=== PATIENT | female | born 1970 | race African-American/Black ===

== ENCOUNTER 2016-11-28 17:28 | Emergency (ER) | payer MEDICAID ==
[~2016-11-28] VITALS: Ht 175.3 cm; Wt 77.1 kg
[~2016-11-28 17:28] MED LIST: BACITRACIN1 APPLIC TOPIC; BACTRIM DS TAB1 EAC1 ORAL; IBUPROFEN600 MG ORAL; METHIMAZOLE10 MG PO
[2016-11-28] MEDS ORDERED: IBUPROFEN600 MG ORAL (18:42)
[2016-11-28 18:55] VITALS: BP 134/74
--- NOTE | 2016-11-28 22:52 | Emergency Room Report ---
History of Present Illness General Chief Complaint: Lower Extremity Injury Source: Patient Present Illness HPI The patient is a 46-year-old female presenting for left foot pain. She does admit to surgery of the left toe approximately 1 year prior with no complications. Pain began this morning for no known reason. Described as an 8/ 10 dull ache to the far end of the foot and does not radiate. Worse with walking. She also noticed swelling to the area. She denies any other injury or symptoms including nausea, vomiting, fever, chills, rash Allergies: Coded Allergies: SULFAMETHOXAZOLE (Verified Allergy, Mild, Itching, 05/03/14) TRIMETHOPRIM (Verified Allergy, Mild, Itching, 05/03/14) Patient History Past Medical History: see triage record Pertinent Family History: none Last Menstrual Period: na Reviewed Nursing Documentation: PMH: Agreed, PSxH: Agreed Nursing Documentation-PMH Past Medical History: No History, Except For Review of Systems All Other Systems: negative except mentioned in HPI Physical Exam Vital Signs Date Time Temp Pulse Resp B/P (MAP) Pulse Ox O2 Delivery O2 Flow Rate FiO2 11/28/16 17:51 98.8 79 18 134/74 99 Room Air Sp02 EP Interpretation: reviewed, normal General Appearance: no apparent distress, alert, GCS 15, non-toxic Head: normocephalic, atraumatic Eyes: bilateral eye normal inspection, bilateral eye PERRL ENT: hearing grossly normal, normal pharynx, no angioedema, normal voice Musculoskeletal: tender - TTP over the L 3rd and 4th MC and phalanges Neurologic: alert, oriented x3, responsive, motor strength/tone normal, sensory intact, speech normal Psychiatric: judgement/insight normal, memory normal, mood/affect normal, no suicidal/homicidal ideation Skin: normal color, no rash, warm/dry, well hydrated Lymphatic: no adenopathy Procedures Splinting Splinting : Consent: Verbal Location: L foot Pre-Made Type: cast shoe Pre-Proc Neuro Vasc Exam: normal Post-Proc Neuro Vasc Exam: normal Patient Tolerated: Well Complications: None Medical Decision Making PA Attestation Dr. Barnett is my supervising physician. Patient management was discussed with my supervising physician Diagnostic Impression: Primary Impression: Closed fracture of toe, phalanx Qualified Codes: S92.912A - Unspecified fracture of left toe(s), initial encounter for closed fracture ER Course The patient is a 46-year-old female presenting for left foot pain. Ddx considered include but not limited to sprain/strain, gout, fracture, contusion, hardware failure PE: NAD No podagra TTP over the L 3rd and 4th MC and phalanges with swelling. No ecchymosis X-ray of the left foot reveals a fracture of the left third proximal phalanx. The patient is given a cast shoe and crutches and will follow up with her orthopedic doctor soon as possible. ER precautions given Other X-Ray Diagnostic Results Other X-Ray Diagnostic Results : X-Ray ordered: L foot # of Views/Limited Vs Complete: 3 View Indication: Pain EP Interpretation: Yes Interpretation: no dislocation, no soft tissue swelling, no fractures Impression: No acute disease Electronically Signed by: LIZ Stephenson Scriblula Text I have reviewd the xray with my supervising physician and interpretation is that there are is a fracture of the 3rd proximal phalanx Last Vital Signs Date Time Temp Pulse Resp B/P (MAP) Pulse Ox O2 Delivery O2 Flow Rate FiO2 11/28/16 18:55 98.8 84 18 134/74 99 Room Air Status: improved Disposition: HOME, SELF-CARE Condition: Improved Scripts Ibuprofen* (MOTRIN*) 600 Mg Tablet 600 MG ORAL Q8H Y for For Pain, #30 TAB 0 Refills Prov: JAMES MURRAY 11/28/16 Patient Instructions: Toe Fracture Additional Instructions: I discussed my findings with the patient. All questions and concerns have been answered. Treatment and medication compliance have been addressed. I advised the patient that they need to follow up with PMD in 3-5 days. Return to ED if pain remains or worsens, numbness or tingling occurs, new rash is noticed, fever is noticed, or if needed for any reason. Patient verbalized understanding of discharge instructions. JAMES MURRAY Nov 28, 2016 22:52
--- NOTE | 2016-11-29 10:38 | Diagnostic Imaging Report ---
Indication: PAIN Technique: 3 views foot Comparison: none Findings: The second proximal interphalangeal joint is fused, presumably surgically. A surgical screw is seen within the head of the second metatarsal, presumably reducing old healed left anatomy. No acute fractures. No dislocations. Joint spaces are preserved. Impression: No acute process Post surgical changes, as described
== END 2016-11-28 19:34 | disposition home or self-care (01) ==
LOC: EMR 18:20
DX: S92.512A Displaced fracture of proximal phalanx of left lesser toe(s), initial encounter for closed fracture (principal); X58.XXXA Exposure to other specified factors, initial encounter; Y92.89 Other specified places as the place of occurrence of the external cause; Z88.2 Allergy status to sulfonamides
CPT/HCPCS: 99283

== ENCOUNTER 2017-12-11 22:29 | Emergency (ER) | payer MEDICAID ==
[~2017-12-11] VITALS: Ht 175.3 cm; Wt 77.1 kg
[2017-12-11 22:45] VITALS: BP 148/79
--- NOTE | 2017-12-11 22:52 | Emergency Room Report ---
History of Present Illness General Chief Complaint: Skin Rash/Abscess Source: Patient, Medical Record Present Illness HPI Is a 47-year-old female with no significant past medical issue. She present with chief complaint of a spider bite. She has some swelling to her left forearm, left eye and right forearm. His been 2 days now. Itchy. Did not see any spider biting her. No nausea no vomiting. No fever chills. Denies any other complaint. No drainage. Allergies: Coded Allergies: SULFAMETHOXAZOLE (Verified Allergy, Mild, Itching, 05/03/14) TRIMETHOPRIM (Verified Allergy, Mild, Itching, 05/03/14) Patient History Past Medical History: see triage record, old chart reviewed Past Surgical History: none Pertinent Family History: none Social History: Denies: smoking Last Menstrual Period: na Now: No Immunizations: other Reviewed Nursing Documentation: PMH: Agreed; PSxH: Agreed Nursing Documentation-PM Past Medical History: No Stated History Review of Systems Eye: Denies: eye pain, blurred vision ENT: Denies: ear pain, nose congestion, throat swelling Respiratory: Denies: cough, shortness of breath Cardiovascular: Denies: chest pain, palpitations Gastrointestinal: Denies: abdominal pain, diarrhea, nausea, vomiting Musculoskeletal: Denies: back pain, joint pain Skin: Reports: rash Neurological: Denies: headache, numbness Endocrine: Denies: increased thirst, increased urine Hematologic/Lymphatic: Denies: easy bruising All Other Systems: negative except mentioned in HPI Physical Exam Vital Signs Date Time Temp Pulse Resp B/P (MAP) Pulse Ox O2 Delivery O2 Flow Rate FiO2 12/11/17 22:38 98.1 88 18 148/79 96 Room Air vitals for high blood pressure Sp02 EP Interpretation: reviewed, normal General Appearance: well appearing, no apparent distress, alert Head: normocephalic, atraumatic Eyes: left eye other - Left upper eyelid with edema. There is small abrasion/ possible nidus of infection. No abscess.; bilateral eye PERRL, bilateral eye EOMI ENT: hearing grossly normal, normal pharynx Neck: full range of motion, supple, no meningismus Respiratory: chest non-tender, lungs clear, normal breath sounds Cardiovascular #1: regular rate, rhythm, no murmur Gastrointestinal: normal bowel sounds, non tender, no mass, no organomegaly, no bruit, non-distended Musculoskeletal: back normal, gait/station normal, normal range of motion, other - Left forearm: On the proximal aspect there is edema of about 5 cm. There is no abscess. Some mild redness. There is some small cluster of abrasion/macules. Neurologic: alert, oriented x3 Psychiatric: mood/affect normal Skin: warm/dry Medical Decision Making Diagnostic Impression: Primary Impression: Cellulitis Qualified Codes: L03.90 - Cellulitis, unspecified ER Course Patient with cellulitis with multiple sites. No evidence of orbital cellulitis. No evidence of abscess or necrotizing fasciitis. Because his multiple sites, most likely MRSA. We'll discharge home. Dose of antibiotics given here. Last Vital Signs Date Time Temp Pulse Resp B/P (MAP) Pulse Ox O2 Delivery O2 Flow Rate FiO2 12/11/17 22:38 98.1 88 18 148/79 96 Room Air Status: improved Disposition: HOME, SELF-CARE Condition: Stable Scripts Mupirocin* (MUPIROCIN*) 22 Gm Oint...g. 1 APPLIC TOPIC THREE TIMES A DAY, #22 GM Prov: Doug Ponce MD 12/11/17 Clindamycin Hcl (CLINDAMYCIN HCL) 300 Mg Capsule 300 MG ORAL THREE TIMES A DAY, #21 CAP Prov: Doug Ponce MD 12/11/17 Additional Instructions: Follow-up with your DrLucrecia in 2-3 days recheck. Return if worse. Doug Ponce MD Dec 11, 2017 22:52
[2017-12-11] MEDS ORDERED: MUPIROCIN22 GM TOPIC (22:57)
[2017-12-11] MEDS ORDERED: CLINDAMYCIN HC300 MG ORAL (22:57)
[2017-12-11] MEDS ORDERED: Clindamycin 150mg cap ORAL ONE (23:00)
[2017-12-11 23:23] VITALS: BP 108/77
== END 2017-12-11 23:13 | disposition home or self-care (01) ==
LOC: EMR 22:50
DX: L03.114 Cellulitis of left upper limb (principal); L03.113 Cellulitis of right upper limb; S50.862A Insect bite (nonvenomous) of left forearm, initial encounter; S50.861A Insect bite (nonvenomous) of right forearm, initial encounter; Z88.1 Allergy status to other antibiotic agents; W57.XXXA Bitten or stung by nonvenomous insect and other nonvenomous arthropods, initial encounter; Y92.9 Unspecified place or not applicable; H02.844 Edema of left upper eyelid; Z88.2 Allergy status to sulfonamides; S00.212A Abrasion of left eyelid and periocular area, initial encounter
CPT/HCPCS: 96372; 99283

== ENCOUNTER 2017-12-26 18:25 | Emergency (ER) | payer MEDICAID ==
[~2017-12-26] VITALS: Ht 175.3 cm; Wt 79.4 kg
[~2017-12-26 18:25] MED LIST changes: +CLINDAMYCIN HC300 MG ORAL; +MUPIROCIN22 GM TOPIC
[2017-12-26] MEDS ORDERED: NKM (18:34)
[2017-12-26] MEDS ORDERED: METHIMAZOLE10 MG PO (18:36)
[2017-12-26 19:00] VITALS: BP 125/84
[2017-12-26] MEDS ORDERED: BACITRACIN15 GM TOPIC (19:02)
[2017-12-26] MEDS ORDERED: [UNRECOGNIZED DRUG - OTHER] TP (19:02)
[2017-12-26 19:25] VITALS: BP 115/75
--- NOTE | 2017-12-27 00:02 | Emergency Room Report ---
History of Present Illness General Chief Complaint: Skin Rash/Abscess Source: Patient Present Illness Allergies: Coded Allergies: SULFAMETHOXAZOLE (Verified Allergy, Mild, Itching, 05/03/14) TRIMETHOPRIM (Verified Allergy, Mild, Itching, 05/03/14) Patient History Now: No Nursing Documentation-[facility] Past Medical History: No History, Except For Physical Exam Vital Signs Date Time Temp Pulse Resp B/P (MAP) Pulse Ox O2 Delivery O2 Flow Rate FiO2 12/26/17 18:38 98.6 70 20 125/84 96 Room Air Medical Decision Making Diagnostic Impression: Primary Impression: Rash and other nonspecific skin eruption Last Vital Signs Date Time Temp Pulse Resp B/P (MAP) Pulse Ox O2 Delivery O2 Flow Rate FiO2 12/26/17 19:25 98.0 70 16 115/75 98 Room Air Disposition: HOME, SELF-CARE Condition: Stable Scripts Diphenhydramin/Benzethon/Zinc (CALAGEL GEL) 177.44 Ml Gel..ml. 177.44 ML TP BID, #177 ML Prov: German Hope MD 12/26/17 Bacitracin (Bacitracin) 28.4 Gm Oint...g. 1 APPLIC TOPIC THREE TIMES A DAY, #28.4 GM Prov: German Hope MD 12/26/17 Referrals: [facility]ERR[facility] (PCP) Patient Instructions: Insect Bite, [id number] German Hope MD Dec 27, 2017 00:02
== END 2017-12-26 19:05 | disposition home or self-care (01) ==
LOC: EMR 18:57
DX: R21 Rash and other nonspecific skin eruption (principal); Z88.2 Allergy status to sulfonamides; Z88.3 Allergy status to other anti-infective agents
CPT/HCPCS: 99282

== ENCOUNTER 2018-04-06 20:59 | Emergency (ER) | payer SELFPAY ==
[~2018-04-06] VITALS: Ht 175.3 cm; Wt 72.6 kg
[~2018-04-06 20:59] MED LIST changes: +BACITRACIN15 GM TOPIC; +NKM; +[UNRECOGNIZED DRUG - OTHER] TP
[2018-04-06 21:35] VITALS: BP 135/73
--- NOTE | 2018-04-06 21:35 | NUR ---
ED Nurse Note: pt walked in c/o back pain started yesterday but progressively worsening, denies any injury or trauma, pt states she just woke up with pain. pt AA&ox4, gcs=15, skin warm and dry, resp even and unlabored on RA, CMS intact BUE/BLE, ambulatory w/steady gait, will cont monitor.
[2018-04-06] MEDS ORDERED: Acetaminophen 500mg (ES) tab PO ONE (22:45)
[2018-04-06] MEDS ORDERED: Ketorolac 30mg Inj IM ONE (22:45)
[2018-04-06 23:06] LABS: APPEARANCE,URINE CLEAR; BILIRUBIN, URINE NEGATIVE (NEGATIVE); GLUCOSE, URINE (UA) NEGATIVE (NEGATIVE); KETONES,URINE NEGATIVE (NEGATIVE); LEUKOCYTE ESTERASE ,URINE 1+ (NEGATIVE); NITRITE,URINE NEGATIVE (NEGATIVE); PH,URINE 7 (4.5-8.0); PROTEIN,URINE NEGATIVE (NEGATIVE); UROBILINOGEN,URINE 4 MG/DL (0.0-1.0)
[2018-04-06 23:08] LABS: COLOR,URINE YELLOW
--- NOTE | 2018-04-06 23:41 | Emergency Room Report ---
History of Present Illness General Chief Complaint: Lower Back Pain or Injury Source: Patient Present Illness HPI Patient presents with 3 days of increased lower back pain. She has chronic back pain but this feels different. There is no injury. The pain is worse when she bends over and stands up. She feels that there is up muscle this wrapping with burning aching pain. The pain radiates somewhat down her left side but denies any numbness or weakness. She denies any trauma. There is no fever. She denies taking any blood thinners. She denies any IV drug abuse. 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 She rates the pain 7/10 at triage, but 10/10 to me. She is not taking any medication prior to coming. Denies any dysuria or incontinence. She has no difficulty moving her bowels. She is treated for hyperthyroidism. No fevers, chills, chest pain, palpitations, nausea, vomiting, diarrhea, dysuria , abdominal pain, shortness of breath, depression, visual changes, headache. Allergies: Coded Allergies: SULFAMETHOXAZOLE (Verified Allergy, Mild, Itching, 05/03/14) TRIMETHOPRIM (Verified Allergy, Mild, Itching, 05/03/14) Patient History Past Medical History: see triage record Social History: Denies: alcohol use, drug use - Prior opiates Social History Narrative manager nursing at the [employer] Last Menstrual Period: JEANCARLOS Now: No Reviewed Nursing Documentation: PMH: Agreed; PSxH: Agreed Nursing Documentation-PMH Past Medical History: No History, Except For Review of Systems All Other Systems: negative except mentioned in HPI Physical Exam Vital Signs Date Time Temp Pulse Resp B/P (MAP) Pulse Ox O2 Delivery O2 Flow Rate FiO2 04/06/18 21:05 98.1 80 18 137/73 97 Room Air Sp02 EP Interpretation: reviewed, normal General Appearance: well appearing, no apparent distress, GCS 15 Head: normocephalic, atraumatic Eyes: bilateral eye normal inspection, bilateral eye PERRL, bilateral eye other - Slight exophthalmos ENT: hearing grossly normal, normal voice Neck: full range of motion, supple Respiratory: no respiratory distress, speaking full sentences Gastrointestinal: normal inspection Genitourinary: no CVA tenderness Musculoskeletal: digits/nails normal, normal range of motion, no calf tenderness, other - Tenderness lumbar area worse on left and side with paraspinous muscle spasm. No point tenderness. Straight leg raise negative bilaterally. Neurologic: alert, oriented x3, motor strength/tone normal, DTRs symmetric, sensory intact, cerebellar normal, normal gait, speech normal Psychiatric: mood/affect normal Reflexes: 2+ knee (R), 2+ knee (L); 1+ ankle (R), 1+ ankle (L) Skin: no rash Medical Decision Making Diagnostic Impression: Primary Impression: Low back pain Qualified Codes: M54.5 - Low back pain Additional Impression: Muscle spasm ER Course Patient presents with lower back pain. Differential includes muscle spasms, UTI , pyelonephritis, degenerative disc disease, sciatica amongst others. There are no red flag signs or symptoms at this time. No imaging is indicated. Urinalysis is indicated. Patient states she does not want to take any opiates or narcotics. Shot of Toradol and oral Tylenol are given. Urinalysis unremarkable. Patient is improved after treatment. Pain level is decreased. We discussed treatment plan with the need for her to see her doctor to obtain therapy. Patient is stable for outpatient observation and treatment Laboratory Tests Test 04/06/18 22:51 Urine Color Yellow Urine Appearance Clear Urine pH 7 (4.5-8.0) Urine Specific [place] 1.010 (1.005-1.035) Urine Protein Negative (NEGATIVE) Urine Glucose (UA) Negative (NEGATIVE) Urine Ketones Negative (NEGATIVE) Urine Blood Negative (NEGATIVE) Urine Nitrite Negative (NEGATIVE) Urine Bilirubin Negative (NEGATIVE) Urine Urobilinogen 4 MG/DL (0.0-1.0) H Urine Leukocyte Esterase 1+ (NEGATIVE) H Urine RBC 2-4 /HPF (0 - 2) H Urine WBC 0-2 /HPF (0 - 2) Urine Squamous Epithelial Cells Moderate /LPF (NONE/OCC) H Urine Bacteria Occasional /HPF (NONE) Last Vital Signs Date Time Temp Pulse Resp B/P (MAP) Pulse Ox O2 Delivery O2 Flow Rate FiO2 04/06/18 23:59 98.1 86 18 130/67 98 Room Air Status: improved Disposition: HOME, SELF-CARE Condition: Improved Scripts Methocarbamol* (ROBAXIN*) 500 Mg Tablet 500 MG PO TID, #16 TAB 0 Refills Prov: Mehrdad Garcia MD 04/06/18 Mehrdad Garcia MD Apr 06, 2018 23:41
[2018-04-06] MEDS ORDERED: ROBAXIN500 MG PO (23:43)
[2018-04-06 23:59] VITALS: BP 130/67
--- NOTE | 2018-04-06 23:59 | NUR ---
Ed Nurse Note: pt is cleared to be DC per ERMD, pt discharge and aftercare instruction provided w/ prescription, pt education done via discussion and handout, pt advised to follow up with pcp or return to ED if sx worsen or new sx develop, pt verbalized understanding and agrees with plan, pt vss, ambulatory w/ steady gait, all belongiongs left w/ pt, wristband removed. pt reports pain is better with medication, accompanied by family members.
== END 2018-04-06 23:59 | disposition home or self-care (01) ==
LOC: EMR 21:40
DX: M54.5 Low back pain (principal); M62.838 Other muscle spasm; Z88.2 Allergy status to sulfonamides
CPT/HCPCS: 81001; 96372; 99283; J1885